=== PATIENT | female | born 1990 | race Caucasian/White ===

== ENCOUNTER 2017-10-14 09:59 | Emergency (ER) | payer SELFPAY ==
[2017-10-14] MEDS ORDERED: ETON68IM SQ (10:10)
--- NOTE | 2017-10-14 10:13 | ER Report ---
History and Physical Time Seen By MD: 10:13 Hx. of Stated Complaint: PT REPORTS EPIGASTRIC PAIN THAT STARTED LAST NIGHT HPI/ROS CHIEF COMPLAINT: Epigastric pain HISTORY OF PRESENT ILLNESS: Patient is a 27-year-old female with no contributory past medical history. She states that last evening she was having severe colicky epigastric abdominal pain without radiation that would get 10 out of 10 in intensity associated with nausea. She denies any fevers or chills. She denies ever having similar symptoms in the past. Patient has had a laparoscopic appendectomy in the past but has all other organs. She denies any chest pain or shortness of breath. She denies any recent travel history or recent antibiotic use. REVIEW OF SYSTEMS: Constitutional: No fever, no chills. Eyes: No discharge. ENT: No sore throat. Cardiovascular: No chest pain, no palpitations. Respiratory: No cough, no shortness of breath. Gastrointestinal: Epigastric abdominal cramping associated with nausea and no diarrhea. Genitourinary: No hematuria. Musculoskeletal: No back pain. Skin: No rashes. Neurological: No headache. Allergies: Coded Allergies: No Known Drug Allergies (Unverified , 10/14/17) Home Meds Active Scripts Oxycodone Hcl/Acetaminophen (PERCOCET 5-325 MG TABLET) 1 Each Tablet, 1 EACH PO Q6H for PAIN, #20 TAB 0 Refills Prov:GILLIAN ALLEN MD 10/14/17 Reported Medications Etonogestrel (NEXPLANON) 68 Mg Implant, 68 MG SQ DIRECTED, IMPLANT 10/14/17 Past Medical/Surgical History Noncontributory towards this chief complaint Constitutional Vital Sign - Last 24 Hours 10/14/17 10/14/17 10/14/17 10/14/17 10:00 10:09 10:14 10:29 Temp 98.4 Pulse 92 92 101 Resp 16 B/P (MAP) 134/90 134/90 (105) Pulse Ox 95 96 O2 Delivery Room Air 10/14/17 10/14/17 10/14/17 10/14/17 10:54 11:29 11:44 11:59 Pulse 86 81 88 84 Pulse Ox 94 92 94 93 10/14/17 10/14/17 10/14/17 12:04 12:19 12:29 Pulse 84 90 B/P (MAP) 108/77 (87) Pulse Ox 95 94 Intake and Output 10/14/17 10/14/17 10/15/17 15:00 23:00 07:00 Intake Total 50 ml Balance 50 ml Physical Exam General/Constitutional: Patient is awake, alert, nontoxic and in no acute respiratory distress. Head: Normocephalic and atraumatic. Eyes: Conjunctival clear, Pupils are equal and reactive to light. Extraocular muscles are intact and symmetrical. Sclera are clear and anicteric. Ears:External canals are clear. Tympanic membranes are clear with normal landmarks and light reflex. Nares: No rhinorrhea or bleeding. Turbinates are pink and moist. Oropharyngeal: Mucous membranes are moist. There is no pharyngeal erythema or exudate. There are no palatal petechiae. Uvula is midline and symmetrical. Neck: Supple, no adenopathy. Cardiovascular: Heart is regular rate and rhythm without audible murmurs, rubs or gallops. Pulmonary: Lungs are clear to auscultation bilaterally. There are no wheezes, rales, or rhonchi. Chest rise is symmetrical Abdomen: Soft, epigastric abdominal pain without guarding or rebound tenderness Extremities: No gross deformities, No peripheral cyanosis. Able to move all 4 extremities. Neuro: Alert and oriented X3, Skin: No rashes, skin is warm dry and well perfused. Medical Decision Making Data Points Result Diagram: 10/14/17 1012 10/14/17 1012 Laboratory Hematology Test 10/14/17 10:04 10/14/17 10:12 Urine Color Yellow Urine Clarity Clear Urine pH 6.0 pH (4.8-9.5) Urine Specific [place] 1.010 Urine Protein Negative mg/dL (NEGATIVE) Urine Glucose (UA) Negative mg/dL (NEGATIVE) Urine Ketones Negative mg/dL (NEGATIVE) Urine Blood Small (NEGATIVE) Urine Nitrite Negative (NEGATIVE) Urine Bilirubin Negative (NEGATIVE) Urine Urobilinogen Negative mg/dL (0.2-1.9) Urine Leukocyte Esterase Negative (NEGATIVE) Urine RBC <1 /HPF (0-2/HPF) Urine WBC 1 /HPF (0-5/HPF) Urine Squamous Epithelial Cells Many /LPF (</=FEW) Urine Bacteria Negative /HPF (NONE-FEW) Urine Mucus None /HPF (NONE-FEW) Red Blood Count 4.80 M/uL (4.17-5.56) Mean Corpuscular Volume 90.8 fL (80.0-96.0) Mean Corpuscular Hemoglobin 32.3 pg (26.0-33.0) Mean Corpuscular Hemoglobin Concent 35.6 g/dL (32.0-36.0) Red Cell Distribution Width 12.2 % (11.5-14.5) Mean Platelet Volume 8.6 fL (7.2-11.1) Neutrophils (%) (Auto) 83.9 % (39.4-72.5) Lymphocytes (%) (Auto) 12.3 % (17.6-49.6) Monocytes (%) (Auto) 3.4 % (4.1-12.4) Eosinophils (%) (Auto) 0.1 % (0.4-6.7) Basophils (%) (Auto) 0.3 % (0.3-1.4) Nucleated RBC Relative Count (auto) 0.1 /100WBC Neutrophils # (Auto) 14.7 K/uL (2.0-7.4) Lymphocytes # (Auto) 2.2 K/uL (1.3-3.6) Monocytes # (Auto) 0.6 K/uL (0.3-1.0) Eosinophils # (Auto) 0.0 K/uL (0.0-0.5) Basophils # (Auto) 0.1 K/uL (0.0-0.1) Nucleated RBC Absolute Count (auto) 0.01 K/uL Peripheral Blood Smear No Y/N Sodium Level 140 mmol/L (137-145) Potassium Level 3.7 mmol/L (3.5-5.0) Chloride Level 105 mmol/L (98-107) Carbon Dioxide Level 21 mmol/L (22-31) Blood Urea Nitrogen 10 mg/dl (7-18) Creatinine 0.70 mg/dl (0.52-1.04) Glomerular Filtration Rate Calc > 60.0 Random Glucose 107 mg/dl (75-110) Calcium Level 9.0 mg/dl (8.4-10.2) Total Bilirubin 0.8 mg/dl (0.2-1.3) Aspartate Amino Transf (AST/SGOT) 22 U/L (0-35) Alanine Aminotransferase (ALT/SGPT) 22 U/L (0-56) Alkaline Phosphatase 89 U/L (0-126) Total Protein 8.2 g/dl (6.3-8.2) Albumin 4.3 g/dl (3.5-5.0) Lipase 65 U/L (23-300) Human Chorionic Gonadotropin, Qual Negative (NEGATIVE) Helicobacter pylori IgG Antibody Negative (NEGATIVE) Chemistry Test 10/14/17 10:04 10/14/17 10:12 Urine Color Yellow Urine Clarity Clear Urine pH 6.0 pH (4.8-9.5) Urine Specific [place] 1.010 Urine Protein Negative mg/dL (NEGATIVE) Urine Glucose (UA) Negative mg/dL (NEGATIVE) Urine Ketones Negative mg/dL (NEGATIVE) Urine Blood Small (NEGATIVE) Urine Nitrite Negative (NEGATIVE) Urine Bilirubin Negative (NEGATIVE) Urine Urobilinogen Negative mg/dL (0.2-1.9) Urine Leukocyte Esterase Negative (NEGATIVE) Urine RBC <1 /HPF (0-2/HPF) Urine WBC 1 /HPF (0-5/HPF) Urine Squamous Epithelial Cells Many /LPF (</=FEW) Urine Bacteria Negative /HPF (NONE-FEW) Urine Mucus None /HPF (NONE-FEW) White Blood Count 17.6 k/uL (4.5-11.0) Red Blood Count 4.80 M/uL (4.17-5.56) Hemoglobin 15.5 g/dL (12.0-16.0) Hematocrit 43.6 % (34.0-47.0) Mean Corpuscular Volume 90.8 fL (80.0-96.0) Mean Corpuscular Hemoglobin 32.3 pg (26.0-33.0) Mean Corpuscular Hemoglobin Concent 35.6 g/dL (32.0-36.0) Red Cell Distribution Width 12.2 % (11.5-14.5) Platelet Count 286 K/uL (150-450) Mean Platelet Volume 8.6 fL (7.2-11.1) Neutrophils (%) (Auto) 83.9 % (39.4-72.5) Lymphocytes (%) (Auto) 12.3 % (17.6-49.6) Monocytes (%) (Auto) 3.4 % (4.1-12.4) Eosinophils (%) (Auto) 0.1 % (0.4-6.7) Basophils (%) (Auto) 0.3 % (0.3-1.4) Nucleated RBC Relative Count (auto) 0.1 /100WBC Neutrophils # (Auto) 14.7 K/uL (2.0-7.4) Lymphocytes # (Auto) 2.2 K/uL (1.3-3.6) Monocytes # (Auto) 0.6 K/uL (0.3-1.0) Eosinophils # (Auto) 0.0 K/uL (0.0-0.5) Basophils # (Auto) 0.1 K/uL (0.0-0.1) Nucleated RBC Absolute Count (auto) 0.01 K/uL Peripheral Blood Smear No Y/N Glomerular Filtration Rate Calc > 60.0 Calcium Level 9.0 mg/dl (8.4-10.2) Total Bilirubin 0.8 mg/dl (0.2-1.3) Aspartate Amino Transf (AST/SGOT) 22 U/L (0-35) Alanine Aminotransferase (ALT/SGPT) 22 U/L (0-56) Alkaline Phosphatase 89 U/L (0-126) Total Protein 8.2 g/dl (6.3-8.2) Albumin 4.3 g/dl (3.5-5.0) Lipase 65 U/L (23-300) Human Chorionic Gonadotropin, Qual Negative (NEGATIVE) Helicobacter pylori IgG Antibody Negative (NEGATIVE) Urinalysis Test 10/14/17 10:04 Urine Color Yellow Urine Clarity Clear Urine pH 6.0 pH (4.8-9.5) Urine Specific [place] 1.010 Urine Protein Negative mg/dL (NEGATIVE) Urine Glucose (UA) Negative mg/dL (NEGATIVE) Urine Ketones Negative mg/dL (NEGATIVE) Urine Blood Small (NEGATIVE) Urine Nitrite Negative (NEGATIVE) Urine Bilirubin Negative (NEGATIVE) Urine Urobilinogen Negative mg/dL (0.2-1.9) Urine Leukocyte Esterase Negative (NEGATIVE) Urine RBC <1 /HPF (0-2/HPF) Urine WBC 1 /HPF (0-5/HPF) Urine Squamous Epithelial Cells Many /LPF (</=FEW) Urine Bacteria Negative /HPF (NONE-FEW) Urine Mucus None /HPF (NONE-FEW) EKG/Imaging Imaging FACILITY: [facility] PATIENT NAME: Franky Brown : 1990 MR: [id number] V: [id number] EXAM DATE: ORDERING PHYSICIAN: GILLIAN ALLEN TECHNOLOGIST: Location: [facility] [place] Patient: Franky Brown : 1990 Visit/Account:[id number] Date of Sevice: 10/14/2017 ABDOMEN/PELVIS WITH CONTRAST HISTORY:epigastric pain TECHNIQUE: CT abdomen and pelvis with intravenous contrast. Contiguous axial images of the abdomen and pelvis was performed from the lung bases to the symphysis pubis. One of the following dose optimization techniques was utilized in the performance of this exam: Automated exposure control; adjustment of the mA and/ or kV according to the patient's size; or use of an iterative reconstruction technique. Specific details can be referenced in the facility's radiology CT exam operational policy. CONTRAST: 100 cc of Isovue-370 COMPARISON: None. FINDINGS: Visualized lung bases: Negative. Hepatobiliary: Negative. Spleen: Negative. Adrenals: Negative. Kidneys/: Negative. Pancreas: Negative. GI: The appendix appears to be absent. There is some thickening and inflammation of the terminal ileum over a long segment with several areas of focal narrowing just representing Crohn's disease. No abscess, bowel obstruction or fistula formation. Small mesenteric lymph nodes are noted. Nodule within the small bowel coronal image 30 could represent ingested material. A small bowel mass is less likely in this age group. Vessels/spaces/nodes: Small amount of free fluid is noted. Bones/soft tissues: Negative. IMPRESSION: 1. Circumferential thickening and inflammation of the ileum over a long segment with several transition points concerning for possible Crohn's disease. No evidence for bowel obstruction, fistula formation or abscess formation. The colon is unremarkable and the appendix appears to be absent. 2. 6 mm small bowel nodule coronal image 30 is noted possibly ingested food. A small bowel mass is less likely but uncommon in this age group. Report Dictated By: Wiliam Damian MD at 10/14/2017 11:40 AM Report E-Signed By: Wiliam Damian MD at 10/14/2017 11:48 AM WSN:[id number] ED Course/Re-evaluation Clinical Indication for ER IV: Hydration, IV Access ED Course Plan at this time will be to perform abdominal workup including CBC CMP lipase H pylori testing also check urine and test. We will perform a IV contrast enhanced CT scan of the abdomen and pelvis. We will give the patient IV fluids, Zofran and morphine. Re-evaluation 10/14/2017 12:20:[address] scan concerning for possible Crohn's disease. I discussed the case with Dr. Hassan. He recommends either a course of oral steroids with a long taper or budesonide. Because of cost patient prefers to go with oral steroids. Also will prescribe a short course of oral pain medication. Patient will need to follow-up with GI for colonoscopy. Decision to Disposition Date: Oct 14, 2017 Decision to Disposition Time: 12:28 Depart Departure Latest Vital Signs Vital Signs Date Time Temp Pulse Resp B/P (MAP) Pulse Ox O2 Delivery O2 Flow Rate FiO2 10/14/17 12:29 108/77 (87) 10/14/17 12:19 90 94 10/14/17 10:00 98.4 16 Room Air Impression: Primary Impression: Acute colitis Condition: Improved Disposition: HOME OR SELF-CARE Referrals: DAV BELL MD 2 Weeks to arrange for a colonoscopy secondary to possible Crohn's disease New Scripts Oxycodone Hcl/Acetaminophen (PERCOCET 5-325 MG TABLET) 1 Each Tablet 1 EACH PO Q6H for PAIN, #20 TAB 0 Refills Prov: GILLIAN ALLEN MD 10/14/17 Patient Instructions: Crohn Disease (DC) Additional Instructions: Your CT scan shows that you may have an inflammatory bowel disease cause Crohn' s disease. It will be necessary you to schedule a follow-up for a colonoscopy with a fax machine repairer. You were given the contact number for Dr Dav Bell who is a GI doctor that does see patients in [place] however it is recommended that the colonoscopy be performed in the next 2-[address]. [address] Bell is unable to see you in that time you should call [facility] gastroenterology clinic in [place] at [phone]. There address is [address] [place] [address] [place] [address] He should take all of her prescribed medications as directed. GILLIAN ALLEN MD Oct 14, 2017 10:13
[2017-10-14] MEDS ORDERED: NS(*) 0.9% 1000 ML BAG 1,000 ML IV ONE (10:17)
[2017-10-14] MEDS ORDERED: MORPHINE 4 MG/ML SDV IVP ONE (10:20)
[2017-10-14] MEDS ORDERED: LORazepam 2 MG/ML VIAL IVP ONE (10:20)
[2017-10-14] MEDS ORDERED: FAMOTIDINE(*) 20MG/50ML PREMIX 50 ML IVPB ONE (10:20)
[2017-10-14 10:33] LABS: PLATELET COUNT, AUTOMATED 286 K/uL (150-450)
[2017-10-14] MEDS ORDERED: IOPAMIDOL 76% 100 ML INFUS BTL 100 ML ONE (10:44)
--- NOTE | 2017-10-14 11:53 | RADIOLOGY IMAGING REPORT ---
FACILITY: [facility] [place] PATIENT NAME: Franky Brown : 1990 MR: [id number] V: [id number] EXAM DATE: ORDERING PHYSICIAN: GILLIAN ALLEN TECHNOLOGIST: Location: [facility] [place] Patient: Franky Brown : 1990 Visit/Account:[id number] Date of Sevice: 10/14/2017 ABDOMEN/PELVIS WITH CONTRAST HISTORY:epigastric pain TECHNIQUE: CT abdomen and pelvis with intravenous contrast. Contiguous axial images of the abdomen and pelvis was performed from the lung bases to the symphysis pubis. One of the following dose optimization techniques was utilized in the performance of this exam: Autom ated exposure control; adjustment of the mA and/or kV according to the patient's size; or use of an i terative reconstruction technique. Specific details can be referenced in the facility's radiology C T exam operational policy. CONTRAST: 100 cc of Isovue-370 COMPARISON: None. FINDINGS: Visualized lung bases: Negative. Hepatobiliary: Negative. Spleen: Negative. Adrenals: Negative. Kidneys/: Negative. Pancreas: Negative. GI: The appendix appears to be absent. There is some thickening and inflammation of the terminal ile um over a long segment with several areas of focal narrowing just representing Crohn's disease. No ab scess, bowel obstruction or fistula formation. Small mesenteric lymph nodes are noted. Nodule within the small bowel coronal image 30 could represent ingested material. A small bowel mass is less likely in this age group. Vessels/spaces/nodes: Small amount of free fluid is noted. Bones/soft tissues: Negative. IMPRESSION: 1. Circumferential thickening and inflammation of the ileum over a long segment with several transit ion points concerning for possible Crohn's disease. No evidence for bowel obstruction, fistula format ion or abscess formation. The colon is unremarkable and the appendix appears to be absent. 2. 6 mm small bowel nodule coronal image 30 is noted possibly ingested food. A small bowel mass is le ss likely but uncommon in this age group. Report Dictated By: Wiliam Damian MD at 10/14/2017 11:40 AM Report E-Signed By: Wiliam Damian MD at 10/14/2017 11:48 AM WSN:[id number]
[2017-10-14] MEDS ORDERED: OXYC-865 PO (12:22)
[2017-10-14 12:29] VITALS: BP 108/77
[2017-10-14] MEDS ORDERED: ONDANSETRON 4 MG ODT TABDP SL ONE (12:35)
== END 2017-10-14 12:45 | disposition home or self-care (01) ==
LOC: ER 10:00
DX: K52.9 Noninfective gastroenteritis and colitis, unspecified (principal)
CPT/HCPCS: 74177; 81001; 83690; 84703; 85025; 86677; 96365; 96375; 99284; J2060; J2270; J3490; Q9967; S0119; 82040; 82247; 82310; 82374; 82435; 82565; 82947; 84075; 84132; 84155; 84295; 84450; 84460; 84520

== ENCOUNTER → 2018-02-03 | Outpatient (REF) ==
[~2018-02-03] MED LIST: BARIUM SULFATE 176 GM BTL PO ONE; BARIUM SULFATE 340 GM POWD ONE; CHOL100058 PO; DOCU-416 PO; ETON68IM SQ; GING250C3 PO; LACT1CAP6 PO; METF-450 PO; OXYC-865 PO
--- NOTE | 2018-02-03 15:06 | RADIOLOGY IMAGING REPORT ---
FACILITY: [facility] PATIENT NAME: Mohinder Brown : 1990 MR: [id number] V: [id number] EXAM DATE: ORDERING PHYSICIAN: KAMERON BARBOUR TECHNOLOGIST: Location: [facility] Patient: Mohinder Brown : 1990 Visit/Account:[id number] Date of Sevice: 02/03/2018 Exam type: UPPER GI W/SMALL BOWEL SERIES History: Crohn's disease, diabetes, bloating and constipation Comparison: None. Findings: Double contrast upper GI series was performed with thick and thin barium and air contrast there is a moderate amount of gastroesophageal reflux observed. There was no demonstration of a hiatal hernia e sophageal narrowing or mucosal erosion. No abnormality of the stomach duodenal bulb or duodenal C-lo op was seen. Barium was followed throughout the normal-appearing small bowel to the unremarkable ter shannan ileum. Transit time to the right-sided colon was 45 minutes The total fluoroscopy dose area pr oduct was 878.96 micro-Crawford per meter squared IMPRESSION: 1. Large amount of gastric esophageal reflux although no demonstration of hiatal hernia esophageal n arrowing or mucosal erosion Unremarkable remainder of the upper GI series and small bowel follow-through. Transit time to the ri ght-sided colon was 45 minutes Report Dictated By: Lynnette Harris MD at 02/03/2018 2:57 PM Report E-Signed By: Lynnette Harris MD at 02/03/2018 3:01 PM WSN:[id number]
== END ==
LOC: RAD 02:53
PROVIDERS: ATTEND Nurse Practitioner
DX: K21.9 Gastro-esophageal reflux disease without esophagitis (principal)
CPT/HCPCS: 74245

== ENCOUNTER 2018-02-14 02:29 | Day surgery (SDC) | payer SELFPAY ==
[~2018-02-14] VITALS: Ht 152.4 cm; Wt 62.1 kg
[~2018-02-14 02:29] MED LIST changes: -BARIUM SULFATE 176 GM BTL PO ONE; -BARIUM SULFATE 340 GM POWD ONE
[2018-02-14 09:36] LABS: PLATELET COUNT, AUTOMATED 341 K/uL (150-450)
[2018-02-14] MEDS ORDERED: NORMOSOL R SOLN(*) 1000 ML BAG 1,000 ML IV PRN (10:05)
[2018-02-14] MEDS ORDERED: LIDOCAINE/SOD BICARB 8.4% SYR ID ONE (10:05)
[2018-02-14 10:08] VITALS: BP 120/80
[2018-02-14] MEDS ORDERED: PROPOFOL EMUL(*) 10MG/ML 20 ML 60 ML ONE (11:24)
[2018-02-14] MEDS ORDERED: LIDOCAINE MPF 1% 5 ML VIAL ONE (11:24)
[2018-02-14] MEDS ORDERED: KETAMINE HCL 500 MG/10 ML VIAL ONE (11:25)
[2018-02-14 12:01] VITALS: BP 102/66
--- NOTE | 2018-02-14 12:07 | Short(Outpt) Discharge Summary ---
Discharge Summary Reason for Hosp/Final Diag: (1) Abdominal pain Status: Chronic Hospital Course & Plan: EGD with biopsies and colonoscopy with biopsies completed without problems. (2) Dysphagia Status: Chronic (3) Enteritis Status: Chronic (4) Acute colitis Status: Acute Departure Discharge to: Home, Self Care Discharge Instructions Home Meds Reported Medications Metformin Hcl (METFORMIN HCL) 500 Mg Tablet, 1 TAB PO BID for DIABETES, TAB 02/03/18 Docusate Sodium (COLACE) 100 Mg Capsule, 100 MG PO BID, CAPSULE 01/17/18 Miroslava Root (MIROSLAVA) Unknown Strength Capsule, PO QDAY, CAPSULE 01/17/18 Cholecalciferol (Vitamin D3) (VITAMIN D) 1,000 Unit Capsule, 1000 UNIT PO QDAY, CAPSULE 01/17/18 Etonogestrel (NEXPLANON) 68 Mg Implant, 68 MG SQ DIRECTED, IMPLANT 10/14/17 Diet: Regular Activity: As Tolerated Special Instructions: Your upper endoscopy and colonoscopy were completed without problems. I took biopsies of your stomach, upper small intestine, colon, and lower small intestine. I didn't find any inflammation or other abnormalities. My office will call you in the next couple of days to schedule a follow up appointment to discuss these results and to see if you're having symptoms and determine if any further testing is necessary. Problem Qualifiers (1) Abdominal pain: Abdominal location: generalized Qualified Codes: R10.84 - Generalized abdominal pain (2) Dysphagia: Dysphagia type: esophageal phase Qualified Codes: R13.10 - Dysphagia, unspecified UNIQUE DE LA CRUZ MD Feb 14, 2018 12:07
[2018-02-14 13:06] VITALS: BP 114/83
[2018-02-14 13:08] VITALS: BP 113/89
== END 2018-02-14 14:53 | disposition home or self-care (01) ==
LOC: OR 02:29
PROVIDERS: ATTEND Surgery
DX: K52.9 Noninfective gastroenteritis and colitis, unspecified (principal); R10.9 Unspecified abdominal pain; K44.9 Diaphragmatic hernia without obstruction or gangrene; E11.9 Type 2 diabetes mellitus without complications; K59.00 Constipation, unspecified; R13.10 Dysphagia, unspecified
CPT/HCPCS: 00811; 36415; 43239; 45380; 81025; 83516; 85025; 85651; 86140; 87077; 88305; J2001; J2704; J3490; 82040; 82247; 82310; 82374; 82435; 82565; 82947; 84075; 84132; 84155; 84295; 84450; 84460; 84520

== ENCOUNTER 2018-12-05 03:45 | Emergency (ER) | payer SELFPAY ==
--- NOTE | 2018-12-05 03:47 | ER Report ---
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 She's been sleeping extra. She notes dizziness in the form of vertigo, or instability, but not syncope. Patient notes her ears and hearing have seemed plugged or way. She feels that her left eye has been blurry. Patient notes no cough or shortness of breath. She notes that she has subjective fevers and chills. He notes that along her left sternal margin. There is been pain and tenderness area. Patient denies dysuria, frequency or hematuria. She has a Splint on control implant. Her last menstrual period is irregular. She does not think she is . Patient denies history of anemia. Patient denies exposure to people who have mononucleosis. Patient states she has normal thyroid history. Patient states, type II diabetes managed by metformin 500 mg once daily. Leif Herman states hyperlipidemia on cholesterol medication but she lost her prescription and has not sought a refill. She is unable to recall the name. REVIEW OF SYSTEMS: Respiratory: No cough, no dyspnea. Cardiovascular: No chest pain, no palpitations. Gastrointestinal: No vomiting, no abdominal pain. Musculoskeletal: No back pain. Allergies: Coded Allergies: No Known Drug Allergies (Unverified , 12/05/18) Home Meds Reported Medications Metformin Hcl (METFORMIN HCL) 500 Mg Tablet, 1 TAB PO BID for DIABETES, TAB 02/03/18 Docusate Sodium (COLACE) 100 Mg Capsule, 100 MG PO BID, CAPSULE 01/17/18 Bhumika Root (BHUMIKA) Unknown Strength Capsule, PO QDAY, CAPSULE 01/17/18 Cholecalciferol (Vitamin D3) (VITAMIN D) 1,000 Unit Capsule, 1000 UNIT PO QDAY, CAPSULE 01/17/18 Etonogestrel (NEXPLANON) 68 Mg Implant, 68 MG SQ DIRECTED, IMPLANT 10/14/17 Reviewed Nurses Notes: Yes Old Medical Records Reviewed: Yes Hx Smoking: No Smoking Status: Never Smoker Hx Alcohol Use: Yes (ONCE EVERY FEW MONTHS) Constitutional Vital Sign - Last 24 Hours 12/05/18 12/05/18 12/05/18 12/05/18 03:48 03:54 04:00 04:15 Temp 98.4 Pulse 86 77 85 Resp 16 B/P (MAP) 152/96 (114) 152/96 135/107 (116) Pulse Ox 97 98 97 O2 Delivery Room Air 12/05/18 04:30 B/P (MAP) 124/80 (95) Physical Exam Vital signs stable, afebrile, pulse ox normal General Appearance: The patient is alert, has no immediate need for airway protection and no current signs of toxicity. Skin warm, dry, pink HEENT: Pupils equal and round no injection. TMs normal, oropharynx without redness or exudate, palpation of the anterior cervical chain reveals some shotty lymphadenopathy that is nontender Respiratory: Chest is non tender, lungs are clear to auscultation., Palpation along the left sternal border reveals tenderness over the costosternal cartilages. Cardiac: regular rate and rhythm, no murmur Gastrointestinal: Abdomen is soft and non tender, no masses, bowel sounds normal. Musculoskeletal: Neck: Neck is supple and non tender. Extremities have full range of motion and are non tender. Skin: No rashes or lesions. 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 DIFFERENTIAL DIAGNOSIS: After history and physical exam differential diagnosis was considered for vertigo including but not limited to peripheral causes such as benign positional vertigo, Mnire's disease, viral labyrinthitis and central causes such as CVA, and tumor. Medical Decision Making Data Points Result Diagram: 12/05/18 0428 12/05/18 0428 Laboratory Hematology Test 12/05/18 04:28 White Blood Count 10.1 k/uL (4.5-11.0) Red Blood Count 4.63 M/uL (4.17-5.56) Hemoglobin 15.3 g/dL (12.0-16.0) Hematocrit 42.9 % (34.0-47.0) Mean Corpuscular Volume 92.8 fL (80.0-96.0) Mean Corpuscular Hemoglobin 33.0 pg (26.0-33.0) Mean Corpuscular Hemoglobin Concent 35.6 g/dL (32.0-36.0) Red Cell Distribution Width 11.9 % (11.5-14.5) Platelet Count 288 K/uL (150-450) Mean Platelet Volume 8.9 fL (7.2-11.1) Neutrophils (%) (Auto) 67.8 % (39.4-72.5) Lymphocytes (%) (Auto) 27.2 % (17.6-49.6) Monocytes (%) (Auto) 4.4 % (4.1-12.4) Eosinophils (%) (Auto) 0.3 % (0.4-6.7) L Basophils (%) (Auto) 0.3 % (0.3-1.4) Nucleated RBC Relative Count (auto) 0.2 /100WBC Neutrophils # (Auto) 6.9 K/uL (2.0-7.4) Lymphocytes # (Auto) 2.8 K/uL (1.3-3.6) Monocytes # (Auto) 0.4 K/uL (0.3-1.0) Eosinophils # (Auto) 0.0 K/uL (0.0-0.5) Basophils # (Auto) 0.0 K/uL (0.0-0.1) Nucleated RBC Absolute Count (auto) 0.02 K/uL Erythrocyte Sedimentation Rate 7 mm/HOUR (0-20) Chemistry Test 12/05/18 04:28 Sodium Level 134 mmol/L (137-145) Potassium Level 3.8 mmol/L (3.5-5.0) Chloride Level 102 mmol/L (98-107) Carbon Dioxide Level 23 mmol/L (22-31) Blood Urea Nitrogen 9 mg/dl (7-18) Creatinine 0.60 mg/dl (0.52-1.04) Glomerular Filtration Rate Calc > 60.0 Random Glucose 115 mg/dl (75-110) Calcium Level 9.1 mg/dl (8.4-10.2) Total Bilirubin 0.9 mg/dl (0.2-1.3) Aspartate Amino Transf (AST/SGOT) 22 U/L (0-35) Alanine Aminotransferase (ALT/SGPT) 37 U/L (0-56) Alkaline Phosphatase 92 U/L (0-126) Total Protein 8.2 g/dl (6.3-8.2) Albumin 4.5 g/dl (3.5-5.0) Serology Test 12/05/18 04:28 Monoscreen Negative (NEGATIVE) Urinalysis Test 12/05/18 03:45 Urine Color Yellow Urine Clarity Clear Urine pH 5.0 pH (4.8-9.5) Urine Specific [place] 1.009 Urine Protein Negative mg/dL (NEGATIVE) Urine Glucose (UA) Negative mg/dL (NEGATIVE) Urine Ketones Negative mg/dL (NEGATIVE) Urine Blood Negative (NEGATIVE) Urine Nitrite Negative (NEGATIVE) Urine Bilirubin Negative (NEGATIVE) Urine Urobilinogen Negative mg/dL (0.2-1.9) Urine Leukocyte Esterase Negative (NEGATIVE) Urine RBC <1 /HPF (0-2/HPF) Urine WBC None /HPF (0-5/HPF) Urine Squamous Epithelial Cells Many /LPF (</=FEW) Urine Bacteria Negative /HPF (NONE-FEW) Urine Mucus None /HPF (NONE-FEW) Urine HCG, Qualitative Negative (NEGATIVE) ED Course/Re-evaluation ED Course Patient was admitted to an examination room. H&P was done. The differential diagnoses was considered. Patient with clinical syndrome of acute labyrinthitis and vertigo. She has lymphadenopathy in the anterior cervical chain. She likely has viral syndrome causing her symptoms, as well as some chest wall pain, likely costochondritis. Patient fingerstick sugar was checked her at 107. Patient was given meclizine 25 mg to see if it helped her vertigo and nausea. Patient's had no vomiting. She's been able to eat and keep food down. Decision to Disposition Date: Dec 05, 2018 Decision to Disposition Time: 04:07 Depart Departure Latest Vital Signs Vital Signs Date Time Temp Pulse Resp B/P (MAP) Pulse Ox O2 Delivery O2 Flow Rate FiO2 12/05/18 04:30 124/80 (95) 12/05/18 04:15 85 97 12/05/18 03:54 98.4 16 Room Air Impression: Primary Impression: Vertigo Additional Impressions: Acute labyrinthitis Fatigue Type II diabetes mellitus Hyperlipidemia Condition: Improved Disposition: HOME OR SELF-CARE Patient Instructions: Labyrinthitis (ED), Vertigo (ED) Additional Instructions: Take ibuprofen 200 mg 3 tablets 3 times a day with food for reduction of inflammation of your ear canals Take Mucinex D to help decongest her sinuses and ears Take meclizine 25 mg for nausea and dizziness Follow-up with your [facility] if unimproved in 3-5 days. Problem Qualifiers Additional Impressions: Acute labyrinthitis Laterality: unspecified laterality Qualified Codes: H83.09 - Labyrinthitis, unspecified ear Fatigue Fatigue type: unspecified Qualified Codes: R53.83 - Other fatigue Type II diabetes mellitus Diabetes mellitus penitentiary insulin use: without penitentiary use Diabetes mellitus complication status: without complication Qualified Codes: E11.9 - Type 2 diabetes mellitus without complications Hyperlipidemia Hyperlipidemia type: unspecified Qualified Codes: E78.5 - Hyperlipidemia, unspecified VANCE CARREON DO Dec 05, 2018 03:47
[2018-12-05] MEDS ORDERED: MECLIZINE HCL 25 MG TAB PO ONE (04:10)
[2018-12-05 04:55] LABS: PLATELET COUNT, AUTOMATED 288 K/uL (150-450)
[2018-12-05 05:30] VITALS: BP 109/75
== END 2018-12-05 05:44 | disposition home or self-care (01) ==
LOC: ER 04:11
DX: H83.09 Labyrinthitis, unspecified ear (principal); R53.83 Other fatigue; R59.0 Localized enlarged lymph nodes; E11.9 Type 2 diabetes mellitus without complications; Z79.84 Long term (current) use of oral hypoglycemic drugs; E78.5 Hyperlipidemia, unspecified
CPT/HCPCS: 36415; 81001; 81025; 84443; 85025; 85651; 86308; 99283; J8597; 82040; 82247; 82310; 82374; 82435; 82565; 82947; 84075; 84132; 84155; 84295; 84450; 84460; 84520